=== PATIENT | female | born 1995 ===

== ENCOUNTER 2016-12-16 13:16 | Emergency (ER) | payer OTHER ==
[2016-12-16 14:41] LABS: RBC URINE 4 /hpf (0-3); URINE BACTERIA RARE (<OCC); URINE BILIRUBIN NEGATIVE (NEGATIVE); URINE BLOOD NEGATIVE (NEGATIVE); URINE COLOR Yellow (YELLOW); URINE GLUCOSE (UA) NORMAL (Normal); URINE KETONE NEGATIVE (NEGATIVE); URINE LEUKOCYTE ESTERASE 1+ Leu/uL (Negative); URINE PROTEIN NEGATIVE (NEGATIVE); URINE UROBILINOGEN NORMAL mg/dL (0.2-1.0); WBC URINE 12 /hpf (0-5)
--- NOTE | 2016-12-16 15:48 | C.PDOC ---
History Of Present Illness 21 yo female come in for evaluation of lower abdominal cramping pain for past 3- 4 days associated with mild dysuria. Otherwise, pt denies high fever, chlils, sore throat, cough, CP, SOB, N/V/D, back pain, vaginal irritation or discharge. Ambulate to Ed for evaluation, not in any apparent distress. Time Seen by Provider: 12/16/16 14:07 Chief Complaint (Nursing): Abdominal Pain History Per: Patient History/Exam Limitations: no limitations Onset/Duration Of Symptoms: Days Current Symptoms Are (Timing): Still Present Severity: Moderate Location Of Pain/Discomfort: Diffuse Radiation Of Pain To:: None Quality Of Discomfort: Cramping Associated Symptoms: Urinary Symptoms (dysuria). denies: Fever, Nausea, Vomiting, Diarrhea, Chest Pain Exacerbating Factors: None Alleviating Factors: None Recent travel outside of the [place]: No Abnormal Vaginal Bleeding: No Past Medical History Reviewed: Historical Data, Nursing Documentation, Vital Signs Vital Signs: Last Vital Signs Temp 97.7 F 12/16/16 16:04 Pulse 60 12/16/16 16:04 Resp 18 12/16/16 16:04 BP 108/70 12/16/16 16:04 Pulse Ox 98 12/16/16 16:07 Family History: States: Unknown Family Hx - Social History Hx Alcohol Use: Yes Hx Substance Use: No - Immunization History Hx Tetanus Toxoid Vaccination: No Hx Influenza Vaccination: No Hx Pneumococcal Vaccination: No Review Of Systems Except As Marked, All Systems Reviewed And Found Negative. Constitutional: Negative for: Fever, Chills ENT: Negative for: Throat Pain Cardiovascular: Negative for: Chest Pain Respiratory: Negative for: Cough, Shortness of Breath Gastrointestinal: Positive for: Abdominal Pain. Negative for: Nausea, Vomiting , Diarrhea Genitourinary: Positive for: Dysuria. Negative for: Vaginal Discharge, Vaginal Bleeding Musculoskeletal: Negative for: Back Pain Physical Exam - Physical Exam Appears: Well, Non-toxic, No Acute Distress Skin: Normal Color, Warm, No Rash Eye(s): bilateral: PERRL Throat: Normal Neck: Normal ROM, Trachea Midline, Supple Cardiovascular: Rhythm Regular Respiratory: No Decreased Breath Sounds, No Accessory Muscle Use, No Stridor, No Wheezing Gastrointestinal/Abdominal: Soft, Tenderness (mild suprapubic tenderness.), No Distention, No Guarding, No Rebound Back: No CVA Tenderness Extremity: No Pedal Edema Neurological/Psych: Oriented x3, Normal Speech, Normal Motor, Normal Sensation, Normal Reflexes ED Course And Treatment - Laboratory Results Urine POC: Negative O2 Sat by Pulse Oximetry: 98 (room air) Pulse Ox Interpretation: Normal Progress Note: On re-eavl, pt is afebrile, hemodynamicaly stable. Non-toxic. Tolerate Po well in ED. ENT: no acute findings. Lungs: CTA B/L, BS equal B/L. Abd: benign, (-) guarding, (-) rebound, (-) localized tenderness, (-) RLQ tenderness. Back: (-) CVA tenderness. UA results review and /w UTI. Pt advised on course of ds. ref. to f/u with PMD In 2-3 days for re-eavl. return if any new changes. Disposition Counseled Patient/Family Regarding: Studies Performed, Diagnosis, Need For Followup, Rx Given - Disposition Referrals: [facility] [Outside] Disposition: HOME/ ROUTINE Disposition Time: 14:45 Condition: STABLE Additional Instructions: Encourage fluids take medication as prescribed Follow up with PMD in 2-3 days for re-evaluation. Return to ED if any worsening or new changes. Prescriptions: Ciprofloxacin [Cipro] 1 tab PO BID #14 tab Cranberry 500 mg PO BID #30 capsule Instructions: Urinary Tract Infection in Women (ED) Print Language: SOMALI - Clinical Impression Clinical Impression: UTI (urinary tract infection) - PA / BUREAU DIRECTOR / Resident Statement MD/DO has reviewed & agrees with the documentation as recorded. - Scribe Statement The provider has reviewed the documentation as recorded by the Syed Nickerson All medical record entries made by the Syed were at my direction and personally dictated by me. I have reviewed the chart and agree that the record accurately reflects my personal performance of the history, physical exam, medical decision making, and the department course for this patient. I have also personally directed, reviewed, and agree with the discharge instructions and disposition.
[2016-12-16 16:05] VITALS: BP 108/70; PULSE 60; RESP 18; TEMP 97.7
[2016-12-16 16:06] VITALS: O2SAT 98
== END 2016-12-16 16:04 | disposition home or self-care (01) ==
LOC: C.ER 13:16
DX: N39.0 Urinary tract infection, site not specified (principal)